=== PATIENT | female | born 1995 | race Caucasian/White ===

== ENCOUNTER 2021-07-30 16:31 | Emergency (ER) | payer OTHER, SELFPAY ==
--- NOTE | 2021-07-30 16:33 | ED.URI ---
HPI - URI/Sore Throat General Chief Complaint: Upper Respiratory Infection Stated Complaint: sore throat and ears Time Seen by Provider: 07/30/21 16:33 Source: patient Mode of arrival: ambulatory Limitations: no limitations History of Present Illness HPI Narrative: Ms. Roberts is a 26-year-old female patient presenting to the clinic today with complaints of sore throat, nasal congestion, bilateral ear pain x1 week. She reports no fever or chills. No known exposure to anyone with strep, flu, or COVID. She reports that she did do a COVID test when symptoms began and it was negative. MD elicited complaint: sore throat, nasal congestion and other (Ear pain) Related Data Home Medications Medication Instructions Recorded Confirmed No Home Medications 07/30/21 07/30/21 Allergies Allergy/AdvReac Type Severity Reaction Status Date / Time No Known Allergies Allergy Verified 07/30/21 16:47 Review of Systems Review of Systems: Pertinent positives per HPI. Patient denies any fever, chills, rash, headache, visual changes, dizziness, shortness of breath, chest pain, palpitations, nausea, vomiting, diarrhea, constipation, abdominal pain, or any urinary issues. PMFSH Comments At the time of my signature, I reviewed and agree with the nursing past medical, surgical, social, and family history. There is no relevant family history pertinent to the patient complaint. Exam Narrative: General: Well-developed, well nourished, in no apparent distress Head: Normocephalic, atraumatic Eyes: Pupils equally round and reactive to light bilaterally, EOM intact, sclera and conjunctive clear, no discharge, lids normal Ears: TMs intact with mild bulging, dull, ear canals clear, no drainage, grossly hearing normal. Nose: Nares patent, no discharge, no inflammation, no sinus tenderness. Mouth: Oral pharynx without lesions or masses, good dentition, MMM. Oropharynx red Neck: Supple, trachea midline, no enlargement of anterior or posterior cervical nodes, no thyroid masses or goiter palpable. Cardio: Regular rate and rhythm, s1 and s2 normal, no murmur appreciated. Resp: Clear to auscultation bilaterally, no rhonchi, rales, wheezing or rubs Course Course Emergency Course: Portions of this record may have been created with voice recognition software. Level of Care: Express Care Visit Vital Signs Vital signs: Vital Signs Temperature 36.1 C L 07/30/21 16:36 Pulse Rate 92 07/30/21 16:36 Respiratory Rate 16 07/30/21 16:36 Blood Pressure 137/82 07/30/21 16:36 Pulse Oximetry 99 07/30/21 16:36 Temperature 36.1 C L 07/30/21 16:36 Pulse Rate 92 07/30/21 16:36 Respiratory Rate 16 07/30/21 16:36 Blood Pressure 137/82 07/30/21 16:36 Pulse Oximetry 99 07/30/21 16:36 Vital signs reviewed MDM - URI/Sore Throat MDM Narrative Medical decision making narrative: At the time of visit patient is resting comfortably on the exam table. Strep screen was completed and was negative in the clinic. I suspect the patient has an upper respiratory infection with eustachian tube dysfunction. Prescription for prednisone was given and supportive measures were discussed with patient she voiced understanding of discharge instructions and agrees with treatment plan. Differential Diagnosis Differential diagnosis: Likely upper respiratory infection, croup, sinusitis, viral infection, bronchitis, influenza and pharyngitis Lab Data Labs: Strep Screen Presumptive Negative *(Reference Range: Negative)* Discharge Plan Discharge Clinical Impression: Acute dysfunction of both eustachian tubes Upper respiratory infection Qualifiers: URI type: unspecified viral URI Qualified Code(s): J06.9 - Acute upper respiratory infection, unspecified Patient Disposition: Home, Self-Care Condition: Stable Instructions: Earache (ED), Cold Symptoms (ED), Postnasal Drip (DC) Addition
[2021-07-30 16:36] VITALS: BP 137/82; PULSE 92; RESP 16; TEMP 36.1; O2SAT 99
== END 2021-07-30 17:00 | disposition home or self-care (01) ==
PROVIDERS: Emergency Provider Nurse Practitioner Family
DX: H69.93 Unspecified Eustachian tube disorder, bilateral (principal); J06.9 Acute upper respiratory infection, unspecified
CPT/HCPCS: 87081; 87880; 99203; G0463

== ENCOUNTER 2024-12-08 10:07 | Emergency (ER) | payer OTHER, SELFPAY ==
--- OUTSIDE RECORDS SUMMARY | 2024-12-08 10:09 | XMS_ITS | Clinical Summary ---
Author Organization [facility] [employer] Address [address] [place] [address] Care Team Providers Care Hand I Cutter Name Role Phone Perla Simon APRN-[facility] Primary Care Provider + Source Comments [facility] [employer],non-owned Affiliates and Associated Physician Practices is amultiple site organization consisting of ambulatory clinics and hospital sitesin [place], [place], [place] and [place]. This disclosure is being madepursuant to the Care Everywhere program and may not contain all information available regarding this patient. Last updated [employer] Allergies Active Allergy Reactions Criticality Noted Date Comments Metoclopramide Nausea and/or Vomiting 9 Medications * Be aware that medications may not be up to date on this document. Alwaysverify current medications with the patient. venlafaxine XR 24hr (EFFEXOR XR) 37.5 MG capsule Take 37.5 mg by mouth once daily 12/05/2018 Active BLISOVI FE 1.5/30 1.5-30 MG-MCG tablet TAKE ONE T PO D 11 12/17/2018 Active Social History Tobacco Use Types Packs/Day Years Used Date Smoking Tobacco: Former Smokeless Tobacco: Never Comments No Sex and Gender Information Value Date Recorded Sex Assigned at Not on file Legal Sex Female 12:11 PM CDT Gender Identity Not on file Sexual Orientation Not on file Last Filed Vital Signs Vital Sign Reading Time Taken Comments Blood Pressure 112/80 01/06/2019 12:29 PM CDT Pulse 75 01/06/2019 12:29 PM CDT Temperature 36.9 C (98.4 F) 01/06/2019 12:29 PM CDT Respiratory Rate 18 01/06/2019 12:29 PM CDT Oxygen Saturation 98% 01/06/2019 12:29 PM CDT Inhaled Oxygen Concentration - - Weight 94.8 kg (209 lb) 01/06/2019 12:29 PM CDT Height 172.7 cm (5' 8) 01/06/2019 12:29 PM CDT Body Mass Index 31.78 01/06/2019 12:29 PM CDT Plan of Treatment Health Maintenance Due Date Last Done Comments HIV SCREENING 2008 HEPATITIS C SCREENING 07/01/2011 DTAP/TDAP/TD VACCINES (1 - Tdap) 2012 HEPATITIS B VACCINE (1 of 3 - 19+ 3-dose series) 2012 HPV VACCINE (1 - 3-dose SCDM series) 2020 DEPRESSION SCREENING 03/13/2024 COVID-19 VACCINE (1 - 2023-2 5 season) 2024 INFLUENZA VACCINE (#1) 2024 ZOSTER VACCINE (1 of 2) 07/06/2043 HIB VACCINE Aged Out No longer eligi ble based on patient's age to complete this topic MENINGOCOCCAL (Group B) VACC INE SHARED DECISION-MAKING Aged Out No longer eligibl e based on patient's age to complete this topic MENINGOCOCCAL GROUPS A/C/Y/W VACCINE Aged Out No longer eligible b ased on patient's age to complete this topic PNEUMOCOCCAL VACCINE Aged Out No long er eligible based on patient's age to complete this topic Insurance [facility] Care Teams Hand I Cutter Relationship Specialty Start Date End Date Perla Simon APRN-PROTOTYPER PCP - General Nurse Practitioner 01/06/19
--- OUTSIDE RECORDS SUMMARY | 2024-12-08 10:09 | XMS_ITS | Clinical Summary ---
Author Organization [facility] Address [address] [facility] [facility] [address] Phone Care Team Providers Care Auto Wrecker Name Role Phone Unavailable Primary Care Provider Unavailabl e Allergies Active Allergy Reactions Criticality Noted Date Comments Metoclopramide Hcl Vomiting 07/20/2015 Medications MICROGESTIN 1.5-30 MG-MCG Tablet Take 1 Tab by mouth daily. 11 10/01/2016 Active buPROPion (WELLBUTRIN) 150 MG XL tablet Take 1 Tab by mouth every morning. 90 Tab 01/23/2019 Active Active Problems Problem Noted Date Diagnosed Date Moderate episode of recurrent major depressive d isorder 08/08/2018 PIH ( induced hypertension) 03/09/2016 Post term , delivered, current hospital ization 03/08/2016 Post term 03/07/2016 Immunizations Immunization Administration Dates Next Due TDAP Vaccine 03/10/2016 Family History Medical History Relation Name Comments Diabetes Maternal Grandmother Miscarriage Maternal Grandmother Relation Name Status Comments Maternal Grandmother Social History Tobacco Use Types Packs/Day Years Used Date Smoking Tobacco: Former Smokeless Tobacco: Never Alcohol Use Standard Drinks/Week Comments Yes 2 (1 standard drink = 0.6 oz pur e alcohol) PHQ-2 Answer Date Recorded PHQ-2 Score 16 12/05/2018 Sexually Active Control Partners Comments Yes Male Comments No Sex and Gender Information Value Date Recorded Sex Assigned at Not on file Legal Sex Female 7:32 PM CDT Gender Identity Not on file Sexual Orientation Not on file Last Filed Vital Signs Vital Sign Reading Time Taken Comments Blood Pressure 112/80 01/23/2019 4:46 PM TOOL ROOM SUPERVISOR Pulse 102 01/23/2019 4:46 PM TOOL ROOM SUPERVISOR Temperature 37.5 C (99.5 F) 01/23/2019 4:46 PM TOOL ROOM SUPERVISOR Respiratory Rate 20 01/23/2019 4:46 PM TOOL ROOM SUPERVISOR Oxygen Saturation 97% 01/23/2019 4:46 PM TOOL ROOM SUPERVISOR Inhaled Oxygen Concentration - - Weight 94.9 kg (209 lb 3.2 oz) 01/23/2019 4:46 P M TOOL ROOM SUPERVISOR Height 172.7 cm (5' 8) 01/23/2019 4:46 PM TOOL ROOM SUPERVISOR Body Mass Index 31.81 01/23/2019 4:46 PM TOOL ROOM SUPERVISOR Plan of Treatment Health Maintenance Due Date Last Done Comments Hepatitis B Immunization (1 of 3 - 19+ 3-dose series) 2012 Pap Smear 2014 Human Papillomavirus (HPV) Immunization (1 - 3-dose SCDM series) 2020 Cervical Cancer Screening (CCS) 07/06/2023 HPV/Cotest 07/06/2023 Influenza Immunization (#1) 2024 01/22/2007 SARS-COV-2 Immunization ( season) 2024 Respiratory Syncytial Virus (RSV) Immunization (Adult) (1 - 1-dose 75+ series) 2068 Hepatitis C Virus (HCV) Screening Completed 08/10/2015, 08/10/2015 DTaP/Tdap/Td Immunization Discontinued 03/10/2016 Meningococcal Immunization (ACWY) Aged Out No longer eligible based on patient's age to complete this topic Pneumococcal Immunization Combined Aged Out No longer eligible based on patient's age to complete this topic Rotavirus Immunization Aged Out No lo nger eligible based on patient's age to complete this topic Procedures Procedure Name Priority Date/Time Associated Diagnosis Comments HEPATITIS PANEL ACUTE (AHP) STAT 08/10/2015 9:58 AM CDT from Last 3 Months or Most Recently Relevant to Health Maintenance Results * Hepatitis Panel Acute (AHP) (08/10/2015 9:58 AM CDT) HEPATITIS A IGM ANTIBODY NON DETECTED NON DETECTED 08/11/2015 10:14 PM CDT [facility] Comment: IGM Antibodies to HAV not detected. Does not exclude early acute or recovered HAV infection. HEP B CORE AB (IGM) NON DETECTED NON DETECTED 08/11/2015 10:14 PM CDT [facility] Comment: IGM anti-HBC not detected. Does not exclude the possibility of exposure to or infection with HBV. HEPATITIS B SURFACE ANTIGEN NON DETECTED NON DETECTED 08/11/2015 10:14 PM CDT [facility] hepatitis C antibody 0.18 <1 S/CO 08/11/2015 10:14 PM CDT [facility] Comment: Signal/Cutoff ratio < 0.79 is Nondetected Signal/Cutoff ratio 0.80-0.99 is Grayzone Signal/Cutoff ratio > 0.99 is Detected Supplemental assays are recommended if signal/cutoff ratio is >/=1.00. Signal/cutoff ratio result >/= 5.00 is 97% predictive of positivity for recombinant immunoblot assay (RIBA) and will be reported to the [place] Department of Public Health as required. Blood specimen (specimen) Venous Catheter (IV) / Unknown 08/10/2015 9:58 AM CDT 08/10/2015 10:50 AM CDT Perla Su Page PAC HEMATOLOGY ORDERABLES Final Result [facility] [address] [place] [address] from Last 3 Months or Most Recently Relevant to Health Maintenance Insurance MEDICAID [facility] Advance Directives * Full Code (Latest Code Status on File) Date Activated Date Inactivated Comments 03/07/2016 7:12 PM 03/10/2016 5:40 PM CPR-Full T reatment: FULL ARREST: Attempt Resuscitation/CPR wit intubation and mechanical ventilation. PRE-ARREST: Use entire range of life support measures to stabilize the patient. * Full Code Date Activated Date Inactivated Comments 08/10/2015 3:05 PM 08/12/2015 4:04 PM CPR-Full Diane tment: FULL ARREST: Attempt Resuscitation/CPR wit intubation and mechanical ventilation. PRE-ARREST: Use entire range of life support measures to stabilize the patient.
[2024-12-08 10:13] VITALS: BP 133/86; PULSE 94; RESP 16; TEMP 36.4; O2SAT 100
--- NOTE | 2024-12-08 10:19 | ED.FEMALEGU ---
HPI - Female Genitourinary General Chief complaint: Urogenital-Female Stated complaint: Urinary Problem Source: patient and RN notes reviewed Mode of arrival: ambulatory Limitations: no limitations History of Present Illness HPI Narrative: 29 y/o female presented for c/o burning with urination, frequency and urgency. Onset 2 days. Has taken AZO. Denies hematuria, nausea, vomiting, abdominal pain, flank pain, constipation, diarrhea, fevers or chills. Related Data Allergies Allergy/AdvReac Type Severity Reaction Status Date / Time No Known Allergies Allergy Verified 12/08/24 10:19 Review of Systems Review of Systems: CONSTITUTIONAL: Denies body aches, fever, chills, or sweats. CARDIOVASCULAR: Denies chest pain, palpitations, or edema. RESPIRATORY: Denies cough or dyspnea. GASTROINTESTINAL: Denies abdominal pain, nausea, vomiting, or diarrhea. GENITOURINARY: Reports dysuria, frequency, urgency, denies hematuria, flank pain, discharge MUSCULOSKELETAL: Denies back pain or myalgia. PMFSH Comments At time of signature, I have reviewed and agree with nursing past medical, surgical, social and family history unless otherwise noted. Please see nursing chart for further information. There is no relevant family history pertinent to the presenting complaint Exam Narrative: GENERAL: Well-appearing and in no acute distress. ENT: Mucous membranes pink and moist. NECK: Normal AROM. Supple. CHEST: No respiratory distress. Clear to auscultation. HEART: Regular rate and rhythm. ABDOMEN: Soft, nontender, nondistended, normal active bowel sounds. No CVA tenderness SKIN: Warm, dry, no rash. NEURO: No focal deficits. Alert and oriented x3. Gait steady. PSYCH: Normal affect. Course Course Emergency Course: Patient is aware of diagnosis, understands and agrees to treatment plan. Anticipatory guidance given. Patient agrees to follow-up as directed and is aware of reasons to seek care at the emergency department. Portions of this record may have been created with voice recognition software Level of Care: Express Care Visit Vital Signs Vital signs: Vital Signs Temperature 97.5 F L 12/08/24 10:13 Pulse Rate 94 12/08/24 10:13 Respiratory Rate 16 12/08/24 10:13 Blood Pressure 133/86 12/08/24 10:13 Pulse Oximetry 100 12/08/24 10:13 Oxygen Delivery Room Air 12/08/24 10:13 Temperature 97.5 F L 12/08/24 10:13 Pulse Rate 94 12/08/24 10:13 Respiratory Rate 16 12/08/24 10:13 Blood Pressure 133/86 12/08/24 10:13 Pulse Oximetry 100 12/08/24 10:13 Oxygen Delivery Room Air 12/08/24 10:13 Reviewed MDM - Female Genitourinary MDM Narrative Medical decision making narrative: Discussed physical exam findings. Advised supportive measures and signs/symptoms to go to the ER. Pt is appropriate for outpt treatment and f/u. Differential Diagnosis Differential diagnosis: Likely urinary tract infection, vaginitis and cystitis Discharge Plan Discharge Clinical Impression: Dysuria Patient Disposition: Home Condition: Stable Instructions: Antibiotic Form, Urinary Tract Infection in Women (ED) Additional Instructions: Take the antibiotic as prescribed The urine will be sent of for a culture to identify what type of bacteria is causing your infection. If the culture shows that the antibiotic will not get rid of your infection, you will be notified and a new antibiotic will be called in for you. Increase water intake If you are concerned for , we recommend retesting in a few weeks. you will need to follow up with your PCP, call to schedule an appointment. Go to the ER for any worsening symptoms or concerns Patient Language: Cook Islander Prescriptions: New nitrofurantoin monohyd/m-cryst [Macrobid] 100 mg capsule 100 mg PO Q12H 5 Days Qty: 10 0RF Rx Instructions: must administer with a meal/food Follow-up/Referrals: PHYSICIAN,FRONT OFFICE MANAGER [Primary Care Provider, Internal Medicine] Time of Disposition: 10:32
[2024-12-08 10:35] LABS: BEDSIDEPREGUCG Negative (Negative)
== END 2024-12-08 10:35 | disposition home or self-care (01) ==
PROVIDERS: Emergency Provider Nurse Practitioner Family
DX: R30.0 Dysuria (principal); I10 Essential (primary) hypertension
CPT/HCPCS: 81025; 87086; 87186; 99213; G0463